=== PATIENT | male | born 1995 | race Caucasian/White ===

== ENCOUNTER 2019-08-15 12:42 | Day surgery (SDC) | payer OTHER, SELFPAY ==
--- NOTE | 2019-08-15 | PATH_ITS ---
[facility] Accession Number: [id number] . 01 Material submitted: . PART A: small bowel - SMALL BOWEL BIOPSY PART B: gastrointestinal site - GASTRIC BIOPSY PART C: esophagus - ESOPHAGEAL BIOPSY . 01 Clinical history: . A: R/O SPRUE B: R/O H.PYLORI C: R/O EOE . 02 Diagnosis: A. Small Bowel, Biopsy: Duodenal mucosa with no diagnostic abnormality. Negative for active inflammation, features of sprue, dysplasia, or malignancy. . B. Stomach, Biopsy: Gastric antral and body mucosa with mild chronic inflammation. Negative for Helicobacter organisms by immunohistochemistry. Negative for intestinal metaplasia. Negative for dysplasia or malignancy. . C. Esophagus, Biopsy: Squamocolumnar junctinoal mucosa with features of reflux and greater than 50 eosinophils per high-power field; please see comment. Negative for fungal organisms on PAS stain. Negative for specialized intestinal metaplasia, dysplasia or malignancy. [facility] 08/20/2019 1314 Local . 02 Comment: Part C: In the proper clinical setting, the histopathologic appearance would support a clinical impression of eosinophilic esophagitis. The differential diagnosis includes drug reaction, gastroesophageal reflux, and food allergies. . . 02 Electronically signed: . Sridhar Grove MD, PhD, Pathologist NPI- [id number] . 01 Gross description: . Part A: SMALL BOWEL BIOPSY: Received in formalin are multiple fragment(s) of dhaliwal, soft tissue measuring 0.7 x 0.5 x 0.1 cm in aggregate submitted entirely in 1 cassette(s) Part B: GASTRIC BIOPSY: Received in formalin are 3 fragment(s) of dhaliwal, soft tissue measuring 0.5 x 0.2 x 0.1 cm to 0.1 x 0.1 x 0.1 cm submitted entirely in 1 cassette(s) Part C: ESOPHAGEAL BIOPSY: Received in formalin are multiple fragment(s) of dhaliwal, soft tissue measuring 0.8 x 0.8 x 0.1 cm in aggregate submitted entirely in 1 cassette(s) /[facility] 08/16/2019 0538 Local . 02 Microscopic: . Part B: An immunohistochemical stain was performed to evaluate for Helicobacter organisms and is negative. The control stain showed appropriate reactivity. . Part C: An AB/PAS stain is negative for goblet cells and fungal organisms, respectively. A control stain shows expected reactivity. . * This test was developed and its performance characteristics determined by [employer]. It has not been cleared or approved by the [place]. Food and Drug Administration. The FDA has determined that such clearance or approval is not necessary. This test is used for clinical purposes. It should not be regarded as investigational or for research. . 02 Pathologist provided ICD-10: K29.70, K20.0 . 02 CPT . 484029, 978958, 532483, G25322, 167187 Performed at: 01 [facility] [address] [place] [address], [place], [place] [id number] MD Douglas Gunter MD Phone: [phone] Performed at: 02 [facility] [address] [place], [place] [id number] MD Polly Velásquez MD Phone: [phone]
--- NOTE | 2019-08-15 09:40 | PM.HP.1 ---
History of Present Illness History of Present Illness Date Patient Seen: 08/15/19 Chief complaint: [id number] Narrative: Patient presented for EGD. Patient was seen in the office 07/17/19 for trouble swallowing. Patient describes esopahgeal dysphagia - with sensation food getting stuck in the mid esophagus. He does have a hisotry of pyloric stenosis and required surgery at 1 month old. Meds Home Medications and Allergies Home Medications Medication Instructions Recorded Confirmed Type No Known Home Medications 08/15/19 08/15/19 History Allergies Allergy/AdvReac Type Severity Reaction Status Date / Time No Known Drug Allergies Allergy Verified 08/15/19 14:30 Review of Systems Review of Systems ROS Unobtainable: All systems reviewed & are unremarkable except as noted in HPI and below Exam Const General: cooperative, healthy appearing, comfortable, well developed and well groomed Nutritional Appearance: average body habitus Orientation: alert, awake and oriented x3 Resp Effort & Inspection: normal respiratory effort, able to speak in complete sentences and normal respiratory pattern Auscultation: clear to auscultation bilaterally Cardio Rate: regular rate Rhythm: regular rhythm Heart Sounds: S1 normal and S2 normal GI Palpation: soft and No tender Auscultation: normal bowel sounds Extrem Right lower extremity: no edema Left lower extremity: no edema Assessment & Plan Assessment & Plan narrative: 1. Esophageal dysphagia 2. History of pyloric stenosis EGD today, further recommendations to follow
[2019-08-15 14:32] VITALS: BP 124/74; PULSE 16; RESP 48; TEMP 36.2; O2SAT 100; BMI 33.3
[2019-08-15] MEDS: SODIUM CHLORIDE 0.9% 1,000 ML 70 ML IV (14:46)
[2019-08-15] MEDS: LIDOCAINE 4% SOLN 50 ML 20 ML TOP (15:06)
[2019-08-15] MEDS: fentaNYL 250 MCG/5 ML INJ IV (15:18)
[2019-08-15] MEDS: MIDAZOLAM 5 MG/5 ML VIAL IV (15:19)
--- NOTE | 2019-08-15 15:23 | PM.OP.ENDO ---
Operative Date/Time/Diagnoses Date of procedure: 08/15/19 Time of procedure: 15:08 Procedure Notes Procedure in detail: Surgeon: Vania Rios DO Procedure: Esophagogastroduodenoscopy with biopsy Preoperative diagnosis: 1. Esophageal dysphagia 2. History of pyloric stenosis 3. Change in bowel habits Postoperative diagnosis: 1. Esophageal mucosa changes suggestive of eosinophilic esophagitis -biopsied 2. Normal-appearing gastric -biopsy to rule out H pylori 3. Normal-appearing small intestine -biopsy to rule out celiac sprue Medications: Conscious sedation using 5 mg IV of Midazolam and 100 mcg IV of Fentanyl Preanesthesia Assessment An H and P was performed/updated and the Px?s ASA class is 1. The procedure was discussed in detail with the patient. The potential risks and complications including infection, bleeding, missed lesions, perforation, need for surgery in case of perforation, prolonged hospital stay, and were explained. A brief question and answer period was allotted and once all questions were answered, informed consent was obtained. The patient was brought back to the procedure room and placed on standard monitoring. The patient?s vital signs were monitored continuously throughout the entire procedure. Prior to starting, a timeout was performed to confirm the patient?s identity, allergies, medications, and procedure. Procedure in detail The patient was placed in left lateral decubitus position and a bite block was inserted. The tip of the upper endoscope was placed into the mouth and advanced without difficulty under direct visualization into the esophagus. Esophagus: Esophageal changes including ringed esophagus and linear furrows suggestive of eosinophilic esophagitis noted throughout the esophagus, biopsies of the proximal and distal esophagus were obtained to rule out EOE Stomach: Normal appearing gastric mucosa, no evidence of pyloric stenosis biopsies to rule out H pylori Duodenum: Normal appearing small bowel, biopsies rule out celiac sprue The patient tolerated the procedure well and will be brought back to the recovery area to be discharged once criteria are met. The total physician intraservice time was 11min. Complications There were no complications and estimated blood loss was minimal. Recommendations: Resume previous diet Continue outPx medications Follow up pathology results An emergency contact number was given to the patient for any complications related to the procedure
[2019-08-15 15:25] VITALS: BP 119/68; PULSE 54; RESP 12; TEMP 36.6; O2SAT 99
[2019-08-15 15:30] VITALS: BP 86/64; PULSE 48; RESP 15; O2SAT 97
[2019-08-15 15:35] VITALS: BP 118/72; PULSE 73; RESP 18; O2SAT 98
[2019-08-15 16:00] VITALS: BP 114/76; PULSE 50; RESP 18; TEMP 36.8; O2SAT 100
== END 2019-08-15 16:04 | disposition home or self-care (01) ==
PROVIDERS: Visit Provider Student in an Organized Health Care Education/Training Program
PROC: 0DJ08ZZ Inspection of Upper Intestinal Tract, Via Natural or Artificial Opening Endoscopic (ICD-10-PCS; CPT 43235; principal; 2019-08-15 14:00)
DX: K29.70 Gastritis, unspecified, without bleeding (principal); Q40.0 Congenital hypertrophic pyloric stenosis; K20.0 Eosinophilic esophagitis
CPT/HCPCS: 43239; J2250; J3010